=== PATIENT | female | born 1985 | race Caucasian/White ===

== ENCOUNTER 2017-11-06 11:58 | Inpatient (IN) | payer MEDICAID ==
[2017-11-06] MEDS ORDERED: Sodium Chloride 0.9% 10 ML Syringe FLUSH PRN (13:46)
[2017-11-06] MEDS ORDERED: Misoprostol 400 MCG (4 X 100 MCG TAB) RECTAL PRN (13:46)
[2017-11-06] MEDS ORDERED: Lidocaine 1% 30 ML SDV INJECT PRN (13:46)
[2017-11-06] MEDS ORDERED: Methylergonovine 0.2 MG/1 ML Amp IM PRN (13:46)
[2017-11-06] MEDS ORDERED: Acetaminophen 325 MG Tab PO PRN (13:46)
[2017-11-06] MEDS ORDERED: Carboprost Tromethamine 250 MCG/1 ML Amp IM PRN (13:46)
[2017-11-06] MEDS ORDERED: Ondansetron 4 MG/2 ML SDV IV PRN (13:46)
[2017-11-06] MEDS ORDERED: Lactated Ringers 500 ML IV ONE (13:46)
[2017-11-06] MEDS: Lactated Ringers 1,000 ML IV SCH ×2 (14:09→14:48)
--- NOTE | 2017-11-06 14:13 | US ---
Clinical history: 32-year-old 5 para 3 female who presents at term with no care. Interpretation: Enlarged uterus with a single live ( heart rate 144 bpm) intrauterine gestation, cephalic presentation. Low-volume amniotic fluid (LANETTE 6.9 cm). Placental located up over the fundus left of midline. Biparietal diameter 9.46 cm approximates a 38 week 4 day gestation; head circumference 35.63 cm is a 41 week 6 day gestation; abdominal circumference 35.9 cm 39 week 6 day gestation; and femur length 7. 54 cm 38 week 4 day gestation for an average ultrasound age 39 weeks 5 days. CONCLUSION: Single live 39 week 5 day intrauterine gestation, cephalic presentation with fundal place nta. Oligohydramnios.
--- NOTE | 2017-11-06 14:17 | US ---
Clinical history: 32-year-old 5 para 3 female with low amniotic fluid volume (LANETTE 6.9 cm) pre sents now 39 week 5 day intrauterine gestation, cephalic presentation with mature fundal placenta. Interpretation: Biophysical profile score 8 of a possible 10 reflecting summation score 2 each for the clinical nonst ress test and the sonographic parameters breathing movement, tone and amniotic fluid volu me (score 0 for breathing movements i.e. no episode of breathing 30 seconds duration in 30 anand madonna). Regular rapid heart rate 144 bpm. Calcifications consistent with maturity fundal placenta.
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
--- NOTE | 2017-11-06 15:12 | PN ---
DATE: 11/06/2017 SUBJECTIVE: Patient feels occasional contractions. OBJECTIVE: heart tones in the 120s range, had what appears to be a late deceleration with the last contraction which was felt by patient. IV fluid is being started currently. Ultrasound reviewed by my eyes as well as with tech reveals average ultrasound age of 39 and 5/7 weeks with an estimated weight of 8 pounds 7 ounces with oligohydramnios with an LANETTE of 6.92 with 1 pocket having no fluid and another pocket having 0.8, third pocket having 1.42, and another one having 5.32 with her LANETTE determination. ASSESSMENT: 1. Intrauterine at 39 and 5/7 weeks by ultrasound today and 42+ weeks by her dates. 2. Oligohydramnios with an LANETTE 6.92. 3. insufficient care. 4. 5, para 3-0-1-3. 5. Group B Streptococcus unknown. PLAN: Due to the late deceleration, we will start IV, consider IV fluid resuscitation. Following heart tones closely. I did discuss with her an intervention at this time due to the oligohydramnios and postdates and shared decision was made to proceed with Pitocin augmentation as well as following closely. May need to consider other interventions as well. I did discuss with them following status closely. Please see orders for further details as well. Both her and her agree with the above treatment and plan. [facility] /[id number] LUCAS
[2017-11-06] MEDS: Oxytocin/Normal Saline 30 UNIT/500 ML BAG IV SCH (15:18)
[2017-11-07] MEDS ORDERED: hydrOXYzine HCl 25 MG Tab PO PRN (03:20)
[2017-11-07] MEDS: Lactated Ringers 1,000 ML IV SCH (06:47)
[2017-11-07] MEDS ORDERED: Docusate Sodium 100 MG Cap PO PRN (08:39)
[2017-11-07] MEDS ORDERED: Zolpidem 5 MG Tab PO PRN (08:39)
[2017-11-07] MEDS ORDERED: Oxytocin 10 Units/1 ML SDV IM PRN (08:39)
[2017-11-07] MEDS ORDERED: Benzocaine/Menthol 20%-0.5% Spray 56 GM Canister TOP PRN (08:39)
[2017-11-07] MEDS ORDERED: Simethicone 80 MG Tab.Chew PO PRN (08:39)
[2017-11-07] MEDS ORDERED: Sodium Chloride 0.9% 10 ML Syringe FLUSH PRN (08:39)
--- NOTE | 2017-11-07 09:31 | PN ---
DATE: 11/06/2017 SUBJECTIVE: Patient feels her contractions occasionally. She has been on the left side with oxygen, started due to concerns with heart tones. OBJECTIVE: heart tone baseline is around the 125 range. There has been some accelerations followed by decelerations down into the 100s range and at least two late decelerations noted. ASSESSMENT: 1. Intrauterine at 39 and 5/7 weeks by ultrasound today, 42+ weeks by dates. 2. No care. 3. Group B streptococcus unknown with borderline oligohydramnios with LANETTE 6.92. 4. G5, P3-0-1-3. PLAN: Pitocin was never started because of concerns with heart tones and in light of the late decelerations that have been noted. I did discuss with the patient and her male partner watching closely. We will call the OR team in to be ready and available and at current time, we will follow maternal status closely. I did discuss with the patient and her male partner if nonreassuring status, we will need to proceed with primary low-transverse . I did discuss the risks, benefits, alternatives, complications of including, but not limited to, infection, bleeding, damage to internal organs such as bowel, bladder, tubes, uterus, sometimes fetus, rarely needing a blood transfusion or further surgery, and even rare maternal . She understands and agrees and if need be, we will discuss need for . She states that she has nothing against at this time and if it is felt necessary, both her and her male partner feel that should be done. I did discuss with her at current time that we will follow maternal status with no interventions other than her oxygen, positional changes, and IV fluids. They understand and agreed above treatment and plan. [facility] /[id number]
--- NOTE | 2017-11-07 09:34 | PN ---
DATE: 11/07/2017 SUBJECTIVE: The patient's contractions are getting stronger. They have been changing in frequency. OBJECTIVE: Pitocin at 14 milliunits per minute. heart tones are 120s to 130s. Acceleration noted with vaginal exam. Tocometer reveals contractions every 1-1/2 to 5 to 6 minutes apart. Vaginal exam reveals to be 4+ cm, 75% effaced, -1 to -2 station, vertex suspected. Bag of water felt. ASSESSMENT AND PLAN: Continued labor with cervical change that is somewhat prolonged. I did discuss with the patient and her male partner, we will follow closely. Most likely, increase the Pitocin to 20 milliunits per minute if tolerated and consider artificial rupture of membranes thereafter if she does not continue to have cervical change. I did also discuss with them the refusal for hepatitis B vaccine, erythromycin ophthalmic ointment, and vitamin K. I did discuss with them risks associated with this decision as well as complications including potential for increased bleeding, , infections that can be chronic, and they understand and despite this, sign a refusal form for treatment. PLAN: We will continue to follow clinically and closely at this time. They understand and agree with the above treatment plan. [facility] /[id number]
[2017-11-07] MEDS: Oxytocin/Normal Saline 30 UNIT/500 ML BAG IV SCH (09:35)
--- NOTE | 2017-11-07 09:43 | PN ---
DATE: 11/06/2017 SUBJECTIVE: The patient's contractions are still present, not specifically strong. OBJECTIVE: heart tones are now 125 to 130s range and reactive. Tocometer reveals contractions every 5 to 6 minutes at times. Pitocin at 2 milliunits per minute. Vaginal exam, essentially unchanged from admission, 3 cm, 60% effaced, -1 to -2 station, vertex suspected. ASSESSMENT AND PLAN: Intrauterine at 39 and 5/7 weeks by ultrasound today, and 42+ weeks by dates, GBS unknown, borderline oligohydramnios with an LANETTE of 6.92, in a G5, P3-0-1-3, now started on Pitocin. heart tones are more reassuring. We will call the OR crew and allow them to go home but be nearby. We will continue to follow maternal status closely. The patient and her male partner understand and agree with the above. [facility] /[id number]
--- NOTE | 2017-11-07 10:04 | OBOUT ---
DATE: 11/06/2017 DATE AND TIME OF NST: Date: 11/06/2017. Time: 12:20 hours to 12:40. REASON FOR NST: 1. Intrauterine , questionable dates. 2. No care. 3. G5, P3-0-1-3. NST INTERPRETATION: During this time period, heart tone baseline is somewhere between 135 and 160, and there are at least two 15 x 15 beat per minute accelerations, making this strip reactive. It is also noted to be reassuring. Tocometer reveals potential of 1-2 contractions minimally felt by patient. ASSESSMENT: 1. Nonstress test, reactive and reassuring. 2. Tocometer with contractions. PLAN: We will continue to follow clinically and closely. Please see admit history and physical for further details. [facility] /[id number]
--- NOTE | 2017-11-07 12:49 | DEL ---
DATE: 11/07/2017 PREOPERATIVE DIAGNOSES: 1. Intrauterine , 39 and 6/7 weeks by ultrasound and 42+ weeks by dates. 2. Borderline oligohydramnios with amniotic fluid index of 6.92. 3. Insufficient care. 4. Group B Streptococcus unknown. 5. Positive antibody screen within the blood work, identification pending. 6. G5, P3-0-1-3. POSTOPERATIVE DIAGNOSES: 1. Intrauterine , 39 and 6/7 weeks by ultrasound and 42+ weeks by dates - delivered at 39 and 6/7 weeks. 2. Borderline oligohydramnios with amniotic fluid index of 6.92. 3. Insufficient care. 4. Group B Streptococcus unknown. 5. Positive antibody screen within the blood work, identification pending. 6. G5, P3-0-1-3. 7. First-degree perineal abrasion, nonbleeding and nonrepaired after discussion with the patient. 8. Tight nuchal cord x1, reduced bluntly with delivery of the . 9. A 20-second shoulder dystocia, requiring Kodi and suprapubic pressure. PROCEDURES PERFORMED: 1. Nonstress test. 2. Pitocin augmentation and subsequent spontaneous vaginal delivery, complicated by shoulder dystocia. ANESTHESIA/ANALGESIA: None. ESTIMATED BLOOD LOSS: 200 mL. FINDINGS: Male. scores pending. Weight 9 pounds 6 ounces. SUMMARY OF EVENTS: The patient is a 32-year-old, G5, P3-0-1-3 intrauterine at 39 and 5/7 weeks upon date of admission, who presented with limited/insufficient care. No ultrasounds. Essentially, no care labs. GBS unknown status. Had a workup done. Revealed borderline oligohydramnios with an LANETTE of 6.92, and concerns with heart tones were noted. Subsequently, the patient underwent the above procedures with slow Pitocin augmentation. She slowly progressed with cervical dilation. She was found on the morning of 11/07/2017 to be 7 cm with a bulging bag of water. I did evaluate her and did discuss with her considering artificial rupture of membranes as she was in significant amount of pain and wanted delivery done soon. Subsequently, artificial rupture of membranes was done yielding copious amounts of clear fluid, and within 5 to 10 minutes, she was found to be complete and having urge to push. I entered the room, donned sterile gloves. The patient started pushing with contractions. There was noted to be some deceleration at least down into the 70s. I did discuss with them potential need for vacuum-assisted vaginal delivery. I did open the vacuum up with the next episode with pushing with contractions. vertex was delivered in RAUL presentation. Tight nuchal cord was noted as well as shoulder dystocia. Due to the shoulder dystocia, Kodi ensued as well as subsequently suprapubic pressure as needed as no further descent was noted. Shoulder dystocia resolved, and this lasted approximately 20 seconds. Nuchal cord was reduced bluntly with delivery of the infant, and after delivery of the , infant was stimulated. Minimal respiratory effort was made. The cord was doubly clamped and cut. Infant was brought to team for resuscitation. After resuscitation was done, approximately 10 mL of cord blood was obtained for labs. The placenta was then delivered with gentle cord traction and fundal massage within 15 minutes. The perineum, vagina, and perirectal areas were examined and noted to have small first-degree perineal abrasion, nonbleeding and nonrepaired after discussion with the patient. Pitocin was started per protocol. Mother and infant are currently stable at the time of dictation. [facility] /[id number]
[2017-11-07] MEDS: Prenatal Multivitamin with Calcium/Folic Acid/Iron Tab PO SCH (15:38)
[2017-11-07] MEDS: Ibuprofen 800 MG Tab PO PRN (23:59)
[2017-11-08] MEDS: Ibuprofen 800 MG Tab PO PRN (08:00)
[2017-11-08] MEDS: Prenatal Multivitamin with Calcium/Folic Acid/Iron Tab PO SCH (09:18)
--- NOTE | 2017-11-11 07:15 | DISCH ---
PATIENT ADMITTED ON 11/06/2017 HISTORY OF PRESENT ILLNESS: This patient is a 32-year-old, 5, now para 4, AB1 patient, who was admitted and evaluated and delivered by Dr. Smith. Please see his admission history and physical as well as delivery note. Dr. Smith has thoroughly discussed this patient with me, and also, I am somewhat familiar with her since I saw her in the clinic on November 2016 with a possible early miscarriage. The current course reveals that she has had no conventional care. She was followed by a local contour stitcher at home off and on during the . As mentioned above, please see Dr. Smith's admission H and P. She possibly was at 39 weeks and 6 days' gestation by an ultrasound apparently, but the patient wonders if she could have been 42 to 43 weeks or more along possibly. When she did come to our facility on 11/06/2017 wanting further evaluation, a borderline oligohydramnios was identified with an LANETTE of 6.92. Her GBS status was unknown of course. She was found to have a positive antibody screen, and at the current time, an outside laboratory is going to perform the identification, and then, Dr. Smith and myself will be looking for those results after the long holiday weekend, and we have told the patient that we will either personally call her with further information as to what the antibody was, and also, the patient will be calling our clinic in early November or after the long holiday weekend for further information as well. I did explain to her that possibly, the antibody screen being positive could be insignificant, but on the other hand, we do need to identify to make sure there is not a dangerous lethal antigen that is causing this positive antibody screen for future pregnancies. She did proceed on after IV Pitocin augmentation and did have a spontaneous vaginal delivery. There was 20 seconds of shoulder dystocia. She did have a viable baby boy that weighed 9 pounds 6 ounces and did look post dates. scores were 7 and 9. A sample of cord blood was obtained of course. There were perineal abrasions at delivery, but no lacerations were needed to be sutured. The baby boy has continued to do well in the period. Lyly herself has also done well. I have seen her this morning on rounds on 11/08/2017, and the patient would definitely like to be discharged. Her extremities are negative, and her fundus is firm. The lochia flow was within normal limits. Her vital signs are all stable. Discharge hemoglobin; 11.4. Diet on discharge; regular. The following instructions were given to her: She was asked to please call us if any questions or problems whatsoever, such as fever, excess pain, excess bleeding, any leg or lower extremity problem, or breast or chest problems etc. She assures me that she will keep us closely informed on the phone. Also, she was encouraged to avoid intercourse for approximately 6 weeks. I did emphasize the importance of progressive ambulation at home. FOLLOWUP APPOINTMENT: I did recommend and offer her a appointment with Dr. Smith or any of us in our clinic in approximately 6 weeks. I also recommended and offered a visit with one of our family physicians in approximately 1 week for her baby boy. She tells me that she will likely decline these suggestions and will be seen by her contour stitcher at home for her well- baby care as well as her care. Nonetheless, I did encourage her to keep in close contact with us if any questions or problems. She is going to be calling our clinic after the long holiday weekends to discuss her antibody screen identification report. I and Dr. Smith will also be looking for that report, and we will contact her also if she has not contacted us. DISCHARGE MEDICATIONS: She will use ibuprofen or Motrin p.r.n., and she will continue to take her vitamins one daily. We emphasized the importance of healthy well-balanced nutritional measures with her as well as adequate hydration. Her appears to be well established at the present time. FINAL DIAGNOSES: 1. , possibly at 39 weeks and 6 days' gestation by ultrasound but more likely, 42+ weeks' gestation by dates. 2. Borderline oligohydramnios. 3. Insufficient care. 4. Unknown group B streptococcus status. 5. Positive antibody screen with identification still pending at this time. OPERATIONS AND PROCEDURES: 1. Spontaneous vaginal delivery with 20 seconds of shoulder dystocia and tight nuchal cord. 2. Delivery of a viable baby boy, weighing 9 pounds 6 ounces with scores of [address] Benji Smith. Delivery was on 11/07/2017. [facility] /[id number]
== END 2017-11-08 11:45 | disposition home or self-care (01) | DRG 775 ==
LOC: DL.OBCHECK 11:58 → DL.OB 13:42 → OBSVTOIN 11-07 08:17
PROVIDERS: ADMIT Family Medicine; ATTEND Family Medicine
PROC: 10E0XZZ Delivery of Products of Conception, External Approach (ICD-10-PCS; principal; 2017-11-07)
PROC: 10907ZC Drainage of Amniotic Fluid, Therapeutic from Products of Conception, Via Natural or Artificial Opening (ICD-10-PCS; 2017-11-07)
DX: O41.03X0 Oligohydramnios, third trimester, not applicable or unspecified (principal); O69.1XX0 Labor and delivery complicated by cord around neck, with compression, not applicable or unspecified; O66.0 Obstructed labor due to shoulder dystocia; O70.0 First degree perineal laceration during delivery; Z37.0 Single live birth; Z3A.39 39 weeks gestation of pregnancy
CPT/HCPCS: 36415; 59409; 76815; 76819; 81001; 82962; 85027; 86592; 86703; 86762; 86803; 86850; 86870; 86900; 86901; 87340; A9270-GY; J2590; J7120

== ENCOUNTER 2017-11-11 16:46 | Emergency (ER) | payer MEDICAID ==
--- NOTE | 2017-11-11 17:36 | EDM.PDOC ---
Scribed by Briana Sinclair 11/11/17 1736 for Douglas Jonas MD ED HPI GENERAL MEDICAL PROBLEM - General Chief Complaint: Lower Extremity Injury/Pain Stated Complaint: ? [id number] Time Seen by Provider: 11/11/17 16:53 Source of Information: Reports: Patient, RN, RN Notes Reviewed History Limitations: Reports: No Limitations - History of Present Illness INITIAL COMMENTS - FREE TEXT/NARRATIVE: Patient declines medical screening examination. - Related Data Allergies Allergy/AdvReac Type Severity Reaction Status Date / Time No Known Allergies Allergy Verified 11/06/17 14:23 Past Medical History HEENT History: Reports: Impaired Vision Cardiovascular History: Reports: None Respiratory History: Reports: None Gastrointestinal History: Reports: None Genitourinary History: Reports: None DANCE HISTORIAN History: Reports: , Spontaneous Musculoskeletal History: Reports: None Neurological History: Reports: None Psychiatric History: Reports: None Endocrine/Metabolic History: Reports: None Hematologic History: Reports: None Immunologic History: Reports: None Oncologic (Cancer) History: Reports: None Dermatologic History: Reports: None - Infectious Disease History Infectious Disease History: Reports: None - Past Surgical History Head Surgeries/Procedures: Reports: None Social & Family History - Family History Family Medical History: Noncontributory - Tobacco Use Smoking Status *Q: Never Smoker Second Hand Smoke Exposure: No - Caffeine Use Caffeine Use: Reports: None - Recreational Drug Use Recreational Drug Use: No Review of Systems - Review of Systems Review Of Systems: Unable To Obtain ED EXAM, GENERAL - Physical Exam Exam: Not Obtained Departure - Departure Time of Disposition: 17:10 Disposition: Left Without Being Seen 07 Condition: Undetermined Clinical Impression: Patient left without being seen - Discharge Information Forms: ED Department Discharge, Refusal of Exam and Treatment I have read and agree with the documentation that has been completed regarding this visit. By signing this record, I attest that the documentation was completed in my physical presence and is an accurate record of the encounter.
== END 2017-11-11 17:12 | disposition left against medical advice (07) ==
LOC: DL.ED 16:46
DX: Z53.21 Procedure and treatment not carried out due to patient leaving prior to being seen by health care provider (principal)
CPT/HCPCS: 99282